=== PATIENT | female | born 1990 | race Caucasian/White ===

== ENCOUNTER 2019-02-20 11:00 | Emergency (ER) | payer SELFPAY ==
--- NOTE | 2019-02-20 11:30 | ED Physician Documentation ---
Syncope/Near Syncope - HISTORIAN Historian: patient - HPI Stated Complaint: passed out at [employer] Chief Complaint: Syncope Witnessed: Yes Witnessed By: friend Position at Time of Episode: sitting Symptoms Prior to Episode: none (hot ) Character of Events(s): lost consciousness, became unresponsive, collapsed, felt faint Last known Well Code/Unknown Code: Unknown Symptoms after Event: confused after event. denies: incontinent of urine, incontinent of stool, breathing shallow, breathing stopped, lost pulse, dextrostick low [employer], given D50 [employer] Location of Injury: head (she is not sure there is a red area on forehead ) Associated Symptoms: none Further Comments: yes (She states she was in class - she did not eat breakfast but frequenly does not eat breakfast. She states she does not think she hit her head and she has no continued complaints.) - ROS CONST: other (sinus concerns ) - PAST HX Cardiac Disease: none PE Risk Factors: none Immunizations: UTD Allergies/Adverse Reactions: Allergies Allergy/AdvReac Type Severity Reaction Status Date / Time No Known Allergies Allergy Verified 02/20/19 11:42 Home Medications: Ambulatory Orders Medication Instructions Recorded NK 02/20/19 - SOCIAL HX Smoking History: non-smoker Alcohol Use: none Drug Use: none - FAMILY HX Family History: none - VITAL SIGNS Vital Signs: Vital Signs Temp Pulse Resp BP Pulse Ox 76 25 H 125/72 100 02/20/19 13:21 02/20/19 13:21 02/20/19 13:21 02/20/19 13:21 - REVIEWED ASSESSMENTS Nursing Assessment Reviewed: Yes Vitals Reviewed: Yes Progress - Progress Progress: 1208: after discussion with nurse she states she has Thyroid issues DG ED Results Lab/Radiology - Lab Results Lab Results: Lab Results 02/20/19 02/20/19 02/20/19 11:30 11:30 11:30 WBC 9.30 K/ul K/ul (4.00-12.00) RBC 4.81 M/ul M/ul (3.90-5.20) Hgb 12.0 g/dL g/dL (11.5-16.0) Hct 36.4 % % (34.5-46.5) MCV 76.0 fl L fl (80.0-100.0) MCH 25.0 pg L pg (28.0-34.0) MCHC 33.0 g/dL g/dL (30.0-36.0) RDW 16.4 % H % (11.3-14.3) Plt Count 383 K/mm3 K/mm3 (130-400) Neut % (Auto) 65.0 % % (39.0-79.0) Lymph % (Auto) 28.1 % % (16.0-50.0) [place] % (Auto) 5.0 % % (0.0-11.0) Eos % (Auto) 1.5 % % (0.0-6.8) Baso % (Auto) 0.4 % % (0.0-1.5) Neut # (Auto) 6.1 # k/uL # k/uL (1.4-7.7) Lymph # (Auto) 2.6 # k/uL # k/uL (0.6-4.0) [place] # (Auto) 0.5 # k/uL # k/uL (0.0-0.9) Eos # (Auto) 0.1 # k/uL # k/uL (0.0-0.6) Baso # (Auto) 0.0 # k/uL # k/uL (0.0-0.5) Sodium 144 mmol/L mmol/L (137-145) Potassium 3.8 mmol/L mmol/L (3.5-5.1) Chloride 101 mmol/L mmol/L (98-107) Carbon Dioxide 27 mmol/L mmol/L (22-30) Anion Gap 19.8 BUN 10 mg/dL mg/dL (7-17) Creatinine 0.49 mg/dL L mg/dL (0.52-1.04) Est GFR ( Amer) > 60 (60 - ) Est GFR (Non-Af Amer) > 60 (60 - ) Glucose 119 mg/dL H mg/dL (74-106) Calcium 9.4 mg/dL mg/dL (8.4-10.2) Total Bilirubin 0.9 mg/dL mg/dL (0.2-1.3) AST 27 U/L U/L (15-46) ALT 22 U/L U/L (13-69) Alkaline Phosphatase 86 U/L U/L (38-126) Total Protein 8.2 g/dL g/dL (6.3-8.2) Albumin 4.7 g/dL g/dL (3.5-5.0) TSH 1.310 mIU/l mIU/l (0.465-4.685) - Radiology Radiology Impressions: Examination: CT head without contrast History: PT STATES PASSED FELL HIT HEAD Comparison exam: None available Technique: Noncontrast head CT protocol. Findings: Ventricles and sulci are appropriate for patient age. Cerebrocerebellar parenchyma demonstrates normal attenuation. No evidence for parenchymal hemorrhage. No evidence for mass or mass effect. No midline shift. No extra axial fluid collections. Partial visualization of the paranasal sinuses, mastoid air cells, orbits, skull and scalp without gross irregularity. Impression: No acute parenchymal process. No hemorrhage. Electronically signed on Feb 20, 2019 12:14:29 PM CDT by: Pérez Alcaraz - Orders Orders: ED Orders Category Date Time Status IV Started NOW Care 02/20/19 11:[address] BRAIN W/O CONTRAST Stat Exams 02/20/19 Taken CBC/PLATELET/DIFF Stat Lab 02/20/19 11:30 Completed CMP Stat Lab 02/20/19 11:30 Completed TSH Stat Lab 02/20/19 11:30 Completed 0.9 % Sodium Chloride [Normal Saline] 1,000 ml Med 02/20/19 11:30 Discontinued IV NOW EKG WITH COMPARISON DAILY Ther 02/20/19 11:45 Ordered Syncope Physical Exam - Physical Exam General Appearance: no acute distress, alert EENT: nml eye inspection, PERRL, scleral icterus Respiratory: no resp distress, chest non-tender, breath sounds normal CVS: reg rate & rhythm, heart sounds normal, equal pulses, no murmur Abdomen: non-tender, nml bowel sounds Skin: warm/dry Extremities: non-tender, other (mild red area on mid to left side of forhead with no pain with palpation. no raised areas ) - Neuro/Psych Higher Functions: alert, oriented x3, no evidence of acute CVA, mood/affect nml Cranial Nerves: nml as tested Cerebellar: nml as tested Sensorimotor: nml motor response Discharge Clincal Impression: Syncope and collapse Comments: 1. Change position slowly 2. Increase fluids 3. increase protein 4. See PCP in follow up as scheduled 5. Return to ER for any increasing concerns Condition: Stable Disposition: 01 HOME, SELF-CARE Decision to Admit: NO Date of Decison to Admit: 02/20/19 Decision Time: 13:20
[2019-02-20 11:40] LABS: BASOPHILS % 0.4 % (0.0-1.5); NEUTROPHILS # 6.1 # k/uL (1.4-7.7)
[2019-02-20 11:56] LABS: eGFR (Non-African) > 60
[2019-02-20] MEDS: 0.9 % SODIUM CHLORIDE 1,000 ML IV ONE (12:05)
[2019-02-20 13:24] VITALS: BP 125/72
== END 2019-02-20 13:05 | disposition home or self-care (01) ==
LOC: ED 11:00
DX: R55 Syncope and collapse (principal)
CPT/HCPCS: 70450; 80053; 84443; 85025; 96360; 99283; J7030; S1016